=== PATIENT | male | born 1980 | race African-American/Black ===

== ENCOUNTER 2021-01-08 13:34 | Emergency (ER) | payer MEDICAID ==
[~2021-01-08] VITALS: Ht 175.3 cm; Wt 88.6 kg
[2021-01-08 13:51] VITALS: BP 139/97
== END 2021-01-08 15:06 | disposition home or self-care (01) ==
LOC: ER 13:35
DX: U07.1 COVID-19 (principal); R53.83 Other fatigue
CPT/HCPCS: 99283